=== PATIENT | male | born 2000 | race Caucasian/White ===

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

== ENCOUNTER 2024-02-15 04:00 | Emergency (ER) | payer BC, OTHER ==
[~2024-02-15] VITALS: Ht 167.6 cm; Wt 95.2 kg
[2024-02-15 04:02] VITALS: BP 133/70; TEMP 98
[2024-02-15] MEDS: PREDNISONE 20MG TABLET PO STA (04:26)
[2024-02-15] MEDS: ALBUTEROL (0.083%) 2.5MG/3ML NEB HHN STA (05:28)
[2024-02-15] MEDS: IPRATROPIUM BROMIDE (0.02%) 0.5MG/2.5ML NEB HHN STA (05:28)
[2024-02-15 05:29] VITALS: PULSE 89; RESP 18; O2SAT 97
[2024-02-15] MEDS ORDERED: ALBU6.7H15 INH (05:46)
[2024-02-15] MEDS ORDERED: P20 MT (05:46)
== END 2024-02-15 06:40 | disposition home or self-care (01) ==
LOC: ER 04:00
DX: J45.901 Unspecified asthma with (acute) exacerbation (principal)
CPT/HCPCS: 94640; 99283; Z7610 ×3; J7512

== ENCOUNTER 2024-06-13 15:13 | Emergency (ER) | payer BC ==
[~2024-06-13] VITALS: Ht 167.6 cm; Wt 96.0 kg
[~2024-06-13 15:13] MED LIST: ALBU6.7H15 INH; P20 MT
[2024-06-13 15:20] VITALS: O2SAT 98
[2024-06-13] MEDS: DIPHENHYDRAMINE 50MG/ML VIAL IM ONE (17:01)
[2024-06-13] MEDS: METOCLOPRAMIDE HCL 10MG/2ML VIAL IM ONE (17:01)
[2024-06-13] MEDS: KETOROLAC 30MG/ML VIAL IM ONE (17:02)
[2024-06-13] MEDS ORDERED: METO10TA3 MT (17:36)
[2024-06-13 17:57] VITALS: BP 115/70; PULSE 81; RESP 22; TEMP 98.6
== END 2024-06-13 18:01 | disposition home or self-care (01) ==
LOC: ER 15:13
DX: G43.909 Migraine, unspecified, not intractable, without status migrainosus (principal); J45.909 Unspecified asthma, uncomplicated; Z91.010 Allergy to peanuts; Z98.890 Other specified postprocedural states
CPT/HCPCS: 96372; 99284; J1200; J1885; J2765; Z7610